=== PATIENT | female | born 1970 | race American Indian/Alaskan Native ===

== ENCOUNTER 2020-11-20 10:58 | Emergency (ER) | payer MEDICARE ==
--- NOTE | 2020-11-20 11:46 | XRay Report ---
CHEST 2 VIEWS INDICATION: cough. COMPARISON: 10/15/2020 FINDINGS: Support devices: None. Heart: Within normal limits. Lungs/pleura: No acute air space or interstitial disease. No pneumothorax. Additional findings: None. IMPRESSION: No acute findings. Signer Name: Luc Sharp Jr, MD Signed: 11/20/2020 11:41 AM Workstation Name: [id number]
--- NOTE | 2020-11-20 12:36 | Event Note ---
ED Screening Note Date of service: 11/20/20 Time: 12:35 ED Screening Note: Patient complains of cough and shortness of breath History of HIV-states currently on antiretrovirals, however her viral load is very high per patient Admitted to the hospital for an overdose 10/17/2020 History of asthma Patient is a current smoker + Orthopnea This initial assessment/diagnostic orders/clinical plan/treatment(s) is/are subject to change based on patients health status, clinical progression and re-assessment by fellow clinical providers in the ED. Further treatment and workup at subsequent clinical providers discretion. Patient/guardian urged not to elope from the ED as their condition may be serious if not clinically assessed and managed. Initial orders include: Chest x-ray EKG Labs
[2020-11-20] MEDS ORDERED: ONDANSETRON 4 MG/2 ML INJ IV ONE (13:23)
[2020-11-20] MEDS ORDERED: SODIUM CHLORIDE 0.9% 1000 ML 1,000 ML IV ONE (13:23)
[2020-11-20] MEDS ORDERED: KETOROLAC 30 MG/1 ML INJ IV ONE (13:23)
[2020-11-20 13:41] LABS: Basophils % (Auto) 0.6 % (0.0-1.8); Eosinophils % (Auto) 0.4 % (0.0-4.3); Hematocrit 37.9 % (30.3-42.9); Lymphocytes # (Auto) 1.4 K/mm3 (1.2-5.4); Lymphocytes % (Auto) 36.7 % (13.4-35.0); Mean Corpuscular HGB Conc 34 % (30-34); Mean Corpuscular Volume 95 fl (79-97); Monocytes # (Auto) 0.3 K/mm3 (0.0-0.8); Monocytes % (Auto) 7.9 % (0.0-7.3); Platelet Count 137 K/mm3 (140-440); Red Blood Count 4.02 M/mm3 (3.65-5.03); Red Cell Distribution Width 14.5 % (13.2-15.2)
[2020-11-20 13:58] LABS: Alanine Aminotransferase 14 units/L (7-56); Albumin 3.9 g/dL (3.9-5); Blood Urea Nitrogen 6 mg/dL (7-17); Calcium 9.2 mg/dL (8.4-10.2); Hemolysis Index 11
[2020-11-20 14:20] LABS: BUN/Creatinine Ratio 10
--- NOTE | 2020-11-20 14:53 | Emergency Department Report ---
- General Chief Complaint: Upper Respiratory Infection Stated Complaint: COUGH Time Seen by Provider: 11/20/20 13:22 Source: patient Mode of arrival: Ambulatory Limitations: No Limitations - History of Present Illness Initial Comments: Patient is a 50-year-old F [place] female with past medical history of HIV with a CD4 count 300 who is presenting with cough and congestion for the past 2 weeks. Patient had a COVID-19 test approximately a month ago which was negative. Patient is complaining of cough which is productive of clear to green sputum. Has some mild shortness of breath with exertion. Denies fevers and chills but does have some body aches. Patient has no known COVID-19 exposures. Because of the patient's HIV status and the chronic cough for the last 2 weeks she is concerned that she may have pneumonia. Patient has some mild nausea and diarrhea as well. - Related Data Home Medications Medication Instructions Recorded Confirmed Last Taken Acetaminophen 325 mg PO DAILY PRN 07/26/20 09/13/20 Unknown Naproxen 500 mg PO BID PRN 07/26/20 09/13/20 Unknown Thiamine HCl [Vitamin B-1] 100 mg PO DAILY 07/26/20 09/13/20 Unknown Previous Rx's Medication Instructions Recorded Last Taken Type Divalproex Sodium [Depakote 500 mg PO BID #60 07/27/20 Unknown Rx Sprinkle] ARIPiprazole 5 mg PO QDAY #30 09/14/20 Unknown Rx Acyclovir [Zovirax Tab] 800 mg PO Q12H #60 09/14/20 Unknown Rx Darunavir [Prezista] 800 mg PO QDAY #30 tablet 09/14/[address] [Depakote Dr] 500 mg PO BID #60 tablet 09/14/20 Unknown Rx Emtricitabine [Emtriva] 200 mg PO QDAY #30 capsule 09/14/20 Unknown Rx Escitalopram [Lexapro] 10 mg PO DAILY #30 09/14/20 Unknown Rx Folic Acid 1 mg PO DAILY #30 09/14/20 Unknown Rx LORazepam [Ativan] 1 mg PO TID PRN #60 tablet 09/14/20 Unknown Rx Losartan [Cozaar] 50 mg PO QDAY #30 tablet 09/14/20 Unknown Rx OLANZapine [Zyprexa] 10 mg PO DAILY #30 09/14/20 Unknown Rx Ritonavir 100 mg PO QDAY #30 tab 09/14/20 Unknown Rx Sertraline [Zoloft] 50 mg PO QDAY #30 09/14/20 Unknown Rx Sertraline [Zoloft] 50 mg PO QDAY #30 tablet 09/14/20 Unknown Rx Tenofovir [Viread] 300 mg PO QDAY #30 tablet 09/14/20 Unknown Rx Thiamine [Vitamin B-1] 100 mg PO QDAY #30 tablet 09/14/20 Unknown Rx buPROPion [Wellbutrin] 150 mg PO TID #30 09/14/20 Unknown Rx busPIRone [Buspar] 15 mg PO BID #60 09/14/20 Unknown Rx hydrALAZINE [Apresoline TAB] 25 mg PO Q8HR #90 tablet 09/14/20 Unknown Rx hydroCHLOROthiazide [HCTZ] 25 mg PO QDAY #30 tablet 09/14/20 Unknown Rx methOCARBAMOL [Robaxin TAB] 500 mg PO BID PRN #60 09/14/20 Unknown Rx traZODone [Desyrel] 100 mg PO QHS PRN #30 09/14/20 Unknown Rx Metoprolol [Lopressor TAB] 25 mg PO BID #60 tablet 10/19/20 Unknown Rx Thiamine [Vitamin B-1] 100 mg PO QDAY #30 tablet 10/19/20 Unknown Rx Albuterol Mdi (or & Nicu Only) 2 puff IH QID PRN #1 inhalation 11/20/20 Unknown Rx [ProAir HFA Inhaler] Albuterol Mdi (or & Nicu Only) 2 puff IH QID PRN #1 inhalation 11/20/20 Unknown Rx [ProAir HFA Inhaler] Benzonatate [Tessalon Perles] 100 mg PO Q8HR #10 capsule 11/20/20 Unknown Rx Dicyclomine [Bentyl] 20 mg PO QID #10 tablet 11/20/20 Unknown Rx Fluticasone [Flonase] 1 spray NS QDAY #1 bottle 11/20/20 Unknown Rx HYDROcodone/ACETAMINOPHEN 10 ml PO Q6H PRN #150 solution 11/20/20 Unknown Rx [Hydrocodon-Acetamin 7.5-325/15] Ondansetron [Zofran Odt] 4 mg PO Q8HR #10 tab.rapdis 11/20/20 Unknown Rx Ondansetron [Zofran Odt] 4 mg PO Q8HR #10 tab.rapdis 11/20/20 Unknown Rx predniSONE [Deltasone] 20 mg PO QDAY #5 tab 11/20/20 Unknown Rx predniSONE [Deltasone] 20 mg PO QDAY #5 tab 11/20/20 Unknown Rx Allergies Allergy/AdvReac Type Severity Reaction Status Date / Time Sulfa (Sulfonamide Allergy Unknown Unknown Verified 11/20/20 10:59 Antibiotics) Fish Containing Products Allergy Unknown Verified 11/20/20 10:59 ED Review of Systems ROS: Stated complaint: COUGH Other details as noted in HPI Comment: All other systems reviewed and negative ED Past Medical Hx - Past Medical History Hx Hypertension: Yes Hx Heart Attack/AMI: No Hx Congestive Heart Failure: No Hx Diabetes: No Hx Arthritis: No Hx Seizures: No Hx Asthma: Yes Hx COPD: No Hx Tuberculosis: No Hx Dementia: No Hx HIV: Yes Additional medical history: Bipolar and schizophrenia - Surgical History Hx Coronary Stent: No Hx Open Heart Surgery: No Hx Internal Defibrillator: No Hx Cholecystectomy: No Hx Appendectomy: Yes Hx Breast Surgery: No Additional Surgical History: appendectomy - Social History Smoking Status: Current Every Day Smoker Substance Use Type: None - Medications Home Medications: Home Medications Medication Instructions Recorded Confirmed Last Taken Type Acetaminophen 325 mg PO DAILY PRN 07/26/20 09/13/20 Unknown History Naproxen 500 mg PO BID PRN 07/26/20 09/13/20 Unknown History Thiamine HCl [Vitamin B-1] 100 mg PO DAILY 07/26/20 09/13/20 Unknown History Divalproex Sodium [Depakote 500 mg PO BID #60 07/27/20 09/13/20 Unknown Rx Sprinkle] ARIPiprazole 5 mg PO QDAY #30 09/14/20 Unknown Rx Acyclovir [Zovirax Tab] 800 mg PO Q12H #60 09/14/20 Unknown Rx Darunavir [Prezista] 800 mg PO QDAY #30 tablet 09/14/[address] [Depakote Dr] 500 mg PO BID #60 tablet 09/14/20 Unknown Rx Emtricitabine [Emtriva] 200 mg PO QDAY #30 capsule 09/14/20 Unknown Rx Escitalopram [Lexapro] 10 mg PO DAILY #30 09/14/20 Unknown Rx Folic Acid 1 mg PO DAILY #30 09/14/20 Unknown Rx LORazepam [Ativan] 1 mg PO TID PRN #60 tablet 09/14/20 Unknown Rx Losartan [Cozaar] 50 mg PO QDAY #30 tablet 09/14/20 Unknown Rx OLANZapine [Zyprexa] 10 mg PO DAILY #30 09/14/20 Unknown Rx Ritonavir 100 mg PO QDAY #30 tab 09/14/20 Unknown Rx Sertraline [Zoloft] 50 mg PO QDAY #30 09/14/20 Unknown Rx Sertraline [Zoloft] 50 mg PO QDAY #30 tablet 09/14/20 Unknown Rx Tenofovir [Viread] 300 mg PO QDAY #30 tablet 09/14/20 Unknown Rx Thiamine [Vitamin B-1] 100 mg PO QDAY #30 tablet 09/14/20 Unknown Rx buPROPion [Wellbutrin] 150 mg PO TID #30 09/14/20 Unknown Rx busPIRone [Buspar] 15 mg PO BID #60 09/14/20 Unknown Rx hydrALAZINE [Apresoline TAB] 25 mg PO Q8HR #90 tablet 09/14/20 Unknown Rx hydroCHLOROthiazide [HCTZ] 25 mg PO QDAY #30 tablet 09/14/20 Unknown Rx methOCARBAMOL [Robaxin TAB] 500 mg PO BID PRN #60 09/14/20 Unknown Rx traZODone [Desyrel] 100 mg PO QHS PRN #30 09/14/20 Unknown Rx Metoprolol [Lopressor TAB] 25 mg PO BID #60 tablet 10/19/20 Unknown Rx Thiamine [Vitamin B-1] 100 mg PO QDAY #30 tablet 10/19/20 Unknown Rx Albuterol Mdi (or & Nicu Only) 2 puff IH QID PRN #1 inhalation 11/20/20 Unknown Rx [ProAir HFA Inhaler] Albuterol Mdi (or & Nicu Only) 2 puff IH QID PRN #1 inhalation 11/20/20 Unknown Rx [ProAir HFA Inhaler] Benzonatate [Tessalon Perles] 100 mg PO Q8HR #10 capsule 11/20/20 Unknown Rx Dicyclomine [Bentyl] 20 mg PO QID #10 tablet 11/20/20 Unknown Rx Fluticasone [Flonase] 1 spray NS QDAY #1 bottle 11/20/20 Unknown Rx HYDROcodone/ACETAMINOPHEN 10 ml PO Q6H PRN #150 solution 11/20/20 Unknown Rx [Hydrocodon-Acetamin 7.5-325/15] Ondansetron [Zofran Odt] 4 mg PO Q8HR #10 tab.rapdis 11/20/20 Unknown Rx Ondansetron [Zofran Odt] 4 mg PO Q8HR #10 tab.rapdis 11/20/20 Unknown Rx predniSONE [Deltasone] 20 mg PO QDAY #5 tab 11/20/20 Unknown Rx predniSONE [Deltasone] 20 mg PO QDAY #5 tab 11/20/20 Unknown Rx ED Physical Exam - General Limitations: No Limitations General appearance: alert, in no apparent distress - Head Head exam: Present: atraumatic, normocephalic - Eye Eye exam: Present: normal appearance, PERRL - ENT ENT exam: Present: mucous membranes moist - Neck Neck exam: Present: normal inspection - Respiratory Respiratory exam: Present: normal lung sounds bilaterally. Absent: respiratory distress, wheezes, rales, rhonchi - Cardiovascular Cardiovascular Exam: Present: regular rate, normal rhythm, normal heart sounds. Absent: systolic murmur, diastolic murmur, rubs, gallop - GI/Abdominal GI/Abdominal exam: Present: soft, normal bowel sounds. Absent: distended, guarding, rebound - Extremities Exam Extremities exam: Present: normal inspection - Back Exam Back exam: Present: normal inspection - Neurological Exam Neurological exam: Present: alert, oriented X3 - Psychiatric Psychiatric exam: Present: normal affect, normal mood - Skin Skin exam: Present: warm, dry, intact, normal color. Absent: rash ED Course Vital Signs 11/20/20 10:59 Temperature 98.4 F Pulse Rate 82 Respiratory 20 Rate Blood Pressure 138/106 O2 Sat by Pulse 100 Oximetry ED Medical Decision Making - Lab Data Result diagrams: 11/20/20 12:53 11/20/20 12:53 Lab Results 11/20/20 11/20/20 Range/Units 12:53 12:53 WBC 3.9 L (4.5-11.0) K/mm3 RBC 4.02 (3.65-5.03) M/mm3 Hgb 13.0 (10.1-14.3) gm/dl Hct 37.9 (30.3-42.9) % MCV 95 (79-97) fl MCH 32 (28-32) pg MCHC 34 (30-34) % RDW 14.5 (13.2-15.2) % Plt Count 137 L (140-440) K/mm3 Lymph % (Auto) 36.7 H (13.4-35.0) % [place] % (Auto) 7.9 H (0.0-7.3) % Eos % (Auto) 0.4 (0.0-4.3) % Baso % (Auto) 0.6 (0.0-1.8) % Lymph # (Auto) 1.4 (1.2-5.4) K/mm3 [place] # (Auto) 0.3 (0.0-0.8) K/mm3 Eos # (Auto) 0.0 (0.0-0.4) K/mm3 Baso # (Auto) 0.0 (0.0-0.1) K/mm3 Seg Neutrophils % 54.4 (40.0-70.0) % Seg Neutrophils # 2.1 (1.8-7.7) K/mm3 Sodium 139 (137-145) mmol/L Potassium 3.6 (3.6-5.0) mmol/L Chloride 105.6 (98-107) mmol/L Carbon Dioxide 23 (22-30) mmol/L Anion Gap 14 mmol/L BUN 6 L (7-17) mg/dL Creatinine 0.6 (0.6-1.2) mg/dL Estimated GFR > 60 ml/min BUN/Creatinine Ratio 10 % Glucose 114 H (65-100) mg/dL Calcium 9.2 (8.4-10.2) mg/dL Total Bilirubin 0.30 (0.1-1.2) mg/dL AST 37 (5-40) units/L ALT 14 (7-56) units/L Alkaline Phosphatase 72 (35-129) units/L Troponin T < 0.010 (0.00-0.029) ng/mL NT-Pro-B Natriuret Pep 203.4 (0-900) pg/mL Total Protein 8.6 H (6.3-8.2) g/dL Albumin 3.9 (3.9-5) g/dL Albumin/Globulin Ratio 0.8 % - Radiology Data CXR WNL - Medical Decision Making Thankfully the patient is chest x-ray is within normal limits. Patient has O2 sat of 100% on room air. Patient stable for outpatient therapy. Patient be discharged home with medication for symptomatic relief. Critical care attestation.: If time is entered above; I have spent that time in minutes in the direct care of this critically ill patient, excluding procedure time. ED Disposition Clinical Impression: Acute bronchitis, Suspected COVID-19 virus infection Disposition: DC TO HOME OR SELFCARE Is pt being admited?: No Does the pt Need Aspirin: No Condition: Stable Instructions: Acute Bronchitis (ED), Acute Bronchitis, Adult, [id number], COVID-19 Frequently Asked Questions, COVID-19 Referrals: [facility] [Other] - 3-5 Days Time of Disposition: 14:54
[2020-11-20 15:39] VITALS: BP 136/89
== END 2020-11-20 15:43 | disposition home or self-care (01) ==
LOC: ED 10:58
DX: J20.9 Acute bronchitis, unspecified (principal); Z20.822 Contact with and (suspected) exposure to COVID-19; I10 Essential (primary) hypertension; J45.909 Unspecified asthma, uncomplicated; F17.200 Nicotine dependence, unspecified, uncomplicated; Z21 Asymptomatic human immunodeficiency virus [HIV] infection status; Z98.890 Other specified postprocedural states; Z79.899 Other long term (current) drug therapy
CPT/HCPCS: 36415; 71046; 80053; 83880; 84484; 85025; 96374; 96375; 99284; J1885; J2405; J7030

== ENCOUNTER 2021-04-03 07:17 | Emergency (ER) | payer MEDICARE ==
[2021-04-03] MEDS ORDERED: ASPIRIN 325 MG TAB PO ONE (07:35)
--- NOTE | 2021-04-03 08:16 | XRay Report ---
CHEST 2 VIEWS INDICATION / CLINICAL INFORMATION: Chest pain. COMPARISON: 11/20/20 FINDINGS: SUPPORT DEVICES: None. HEART / MEDIASTINUM: No significant abnormality. LUNGS / PLEURA: No significant pulmonary or pleural abnormality. No pneumothorax. ADDITIONAL FINDINGS: No significant additional findings. IMPRESSION: 1. No acute findings. No change. Signer Name: Carmine Fernandez MD Signed: 04/03/2021 8:12 AM Workstation Name: [id number]
[2021-04-03 08:53] LABS: Basophils % (Auto) 0.6 % (0.0-1.8); Eosinophils % (Auto) 0.4 % (0.0-4.3); Hematocrit 39.5 % (30.3-42.9); Hemoglobin 13.6 gm/dl (10.1-14.3); Lymphocytes # (Auto) 1.1 K/mm3 (1.2-5.4); Lymphocytes % (Auto) 37.7 % (13.4-35.0); Mean Corpuscular HGB Conc 35 % (30-34); Mean Corpuscular Volume 97 fl (79-97); Monocytes # (Auto) 0.3 K/mm3 (0.0-0.8); Monocytes % (Auto) 10.2 % (0.0-7.3); Platelet Count 139 K/mm3 (140-440); Red Blood Count 4.08 M/mm3 (3.65-5.03); Red Cell Distribution Width 14.7 % (13.2-15.2)
[2021-04-03 09:16] LABS: Alanine Aminotransferase 32 units/L (7-56); Albumin 4.3 g/dL (3.9-5); Blood Urea Nitrogen 7 mg/dL (7-17); Calcium 9.9 mg/dL (8.4-10.2); Hemolysis Index 16
[2021-04-03 09:21] LABS: BUN/Creatinine Ratio 14
--- NOTE | 2021-04-03 17:59 | Event Note ---
ED Screening Note Date of service: 04/03/21 Time: 17:57 ED Screening Note: 51-year-old female patient with history of HIV and tobacco use presents to the emergency department with complaints of odynophagia and unintentional weight loss. Patient states she has lost approximately 20 pounds in the last 3 weeks. She has been unable to keep down her antiretroviral medications. Patient was evaluated by her infectious disease specialist yesterday, at which time her viral load was found to be >2000. Patient states she experiences pain in her chest and throat with eating and drinking followed immediately by nausea and vomiting. Patient has her medical records from yesterday's office visit. Patient has not yet undergone endoscopy. General: Awake, appropriately interactive, no acute distress. Neck: Supple. Full range of motion intact. Cardiovascular: Normal peripheral perfusion. Pulmonary: No respiratory distress. Patient is speaking normally without use of accessory muscles. Skin: No apparent rashes or lesions. Neurological: No facial asymmetry. Speech is clear. Follows commands. Patient is alert and oriented. Musculoskeletal: Moves all four extremities spontaneously with normal range of motion. Psych: Cooperative. Appropriate mood and affect. I have greeted and performed a focused rapid initial assessment of this patient. A comprehensive ED assessment and evaluation of the patient, analysis of all test results, and completion of the medical decision-making process will be conducted by additional ED providers. This initial assessment/diagnostic orders/clinical plan/treatment(s) is/are subject to change based on patients health status, clinical progression and re-assessment. Further treatment and workup at subsequent clinical provider's discretion. Patient/guardian urged not to elope from the ED as their condition may be serious if not clinically assessed and managed.
--- NOTE | 2021-04-03 23:05 | Emergency Department Report ---
ED General Adult HPI - General Chief complaint: Chest Pain Stated complaint: CHEST PAIN Time Seen by Provider: 04/03/21 22:33 Source: patient Mode of arrival: Wheelchair Limitations: No Limitations - History of Present Illness Initial comments: 51-year-old female, history of HIV, presents to ED with complaint of dysphagia and odynophagia x3 weeks. Patient was sent to the ED by her infectious disease physician, Dr Lo, after seeing him yesterday and informing patient to come to the ER for an endoscopy. States over the last 3 weeks she has lost cooper roximately 20 pounds. She has painful swallowing and is unable to keep any food or liquids down. No previous history of this. Patient's HIV viral load is 2000. -: week(s) (3) Location: chest Radiation: non-radiation Quality: burning, aching Consistency: constant Improves with: none Worsens with: eating, other (Swallowing) Associated Symptoms: chest pain, nausea/vomiting. denies: fever/chills, shortness of breath Treatments Prior to Arrival: none - Related Data Home Medications Medication Instructions Recorded Confirmed Last Taken Acetaminophen 325 mg PO DAILY PRN 07/26/20 09/13/20 Unknown Naproxen 500 mg PO BID PRN 07/26/20 09/13/20 Unknown Thiamine HCl [Vitamin B-1] 100 mg PO DAILY 07/26/20 09/13/20 Unknown Previous Rx's Medication Instructions Recorded Last Taken Type Divalproex Sodium [Depakote 500 mg PO BID #60 07/27/20 Unknown Rx Sprinkle] ARIPiprazole 5 mg PO QDAY #30 09/14/20 Unknown Rx Acyclovir [Zovirax Tab] 800 mg PO Q12H #60 09/14/20 Unknown Rx Darunavir [Prezista] 800 mg PO QDAY #30 tablet 09/14/[address] [Depakote Dr] 500 mg PO BID #60 tablet 09/14/20 Unknown Rx Emtricitabine [Emtriva] 200 mg PO QDAY #30 capsule 09/14/20 Unknown Rx Escitalopram [Lexapro] 10 mg PO DAILY #30 09/14/20 Unknown Rx Folic Acid 1 mg PO DAILY #30 09/14/20 Unknown Rx LORazepam [Ativan] 1 mg PO TID PRN #60 tablet 09/14/20 Unknown Rx Losartan [Cozaar] 50 mg PO QDAY #30 tablet 09/14/20 Unknown Rx OLANZapine [Zyprexa] 10 mg PO DAILY #30 09/14/20 Unknown Rx Ritonavir 100 mg PO QDAY #30 tab 09/14/20 Unknown Rx Sertraline [Zoloft] 50 mg PO QDAY #30 09/14/20 Unknown Rx Sertraline [Zoloft] 50 mg PO QDAY #30 tablet 09/14/20 Unknown Rx Tenofovir [Viread] 300 mg PO QDAY #30 tablet 09/14/20 Unknown Rx Thiamine [Vitamin B-1] 100 mg PO QDAY #30 tablet 09/14/20 Unknown Rx buPROPion [Wellbutrin] 150 mg PO TID #30 09/14/20 Unknown Rx busPIRone [Buspar] 15 mg PO BID #60 09/14/20 Unknown Rx hydrALAZINE [Apresoline TAB] 25 mg PO Q8HR #90 tablet 09/14/20 Unknown Rx hydroCHLOROthiazide [HCTZ] 25 mg PO QDAY #30 tablet 09/14/20 Unknown Rx methOCARBAMOL [Robaxin TAB] 500 mg PO BID PRN #60 09/14/20 Unknown Rx traZODone [Desyrel] 100 mg PO QHS PRN #30 09/14/20 Unknown Rx Metoprolol [Lopressor TAB] 25 mg PO BID #60 tablet 10/19/20 Unknown Rx Thiamine [Vitamin B-1] 100 mg PO QDAY #30 tablet 10/19/20 Unknown Rx Albuterol Mdi (or & Nicu Only) 2 puff IH QID PRN #1 inhalation 11/20/20 Unknown Rx [ProAir HFA Inhaler] Albuterol Mdi (or & Nicu Only) 2 puff IH QID PRN #1 inhalation 11/20/20 Unknown Rx [ProAir HFA Inhaler] Benzonatate [Tessalon Perles] 100 mg PO Q8HR #10 capsule 11/20/20 Unknown Rx Dicyclomine [Bentyl] 20 mg PO QID #10 tablet 11/20/20 Unknown Rx Fluticasone [Flonase] 1 spray NS QDAY #1 bottle 11/20/20 Unknown Rx HYDROcodone/ACETAMINOPHEN 10 ml PO Q6H PRN #150 solution 11/20/20 Unknown Rx [Hydrocodon-Acetamin 7.5-325/15] Ondansetron [Zofran Odt] 4 mg PO Q8HR #10 tab.rapdis 11/20/20 Unknown Rx Ondansetron [Zofran Odt] 4 mg PO Q8HR #10 tab.rapdis 11/20/20 Unknown Rx predniSONE [Deltasone] 20 mg PO QDAY #5 tab 11/20/20 Unknown Rx predniSONE [Deltasone] 20 mg PO QDAY #5 tab 11/20/20 Unknown Rx Allergies Allergy/AdvReac Type Severity Reaction Status Date / Time Sulfa (Sulfonamide Allergy Unknown Unknown Verified 04/03/21 07:30 Antibiotics) Fish Containing Products Allergy Unknown Verified 04/03/21 07:30 ED Review of Systems ROS: Stated complaint: CHEST PAIN Other details as noted in HPI Comment: All other systems reviewed and negative Constitutional: denies: fever Cardiovascular: chest pain Gastrointestinal: nausea, vomiting, other (Reports dysphagia and odynophagia) ED Past Medical Hx - Past Medical History Hx Hypertension: Yes Hx Heart Attack/AMI: No Hx Congestive Heart Failure: No Hx Diabetes: No Hx Arthritis: No Hx Seizures: No Hx Asthma: Yes Hx COPD: No Hx Tuberculosis: No Hx Dementia: No Hx HIV: Yes Additional medical history: Bipolar and schizophrenia - Surgical History Hx Coronary Stent: No Hx Open Heart Surgery: No Hx Internal Defibrillator: No Hx Cholecystectomy: No Hx Appendectomy: Yes Hx Breast Surgery: No Additional Surgical History: appendectomy - Social History Smoking Status: Current Every Day Smoker Substance Use Type: None - Medications Home Medications: Home Medications Medication Instructions Recorded Confirmed Last Taken Type Acetaminophen 325 mg PO DAILY PRN 07/26/20 09/13/20 Unknown History Naproxen 500 mg PO BID PRN 07/26/20 09/13/20 Unknown History Thiamine HCl [Vitamin B-1] 100 mg PO DAILY 07/26/20 09/13/20 Unknown History Divalproex Sodium [Depakote 500 mg PO BID #60 07/27/20 09/13/20 Unknown Rx Sprinkle] ARIPiprazole 5 mg PO QDAY #30 09/14/20 Unknown Rx Acyclovir [Zovirax Tab] 800 mg PO Q12H #60 09/14/20 Unknown Rx Darunavir [Prezista] 800 mg PO QDAY #30 tablet 09/14/[address] [Sylvia Dr] 500 mg PO BID #60 tablet 09/14/20 Unknown Rx Emtricitabine [Emtriva] 200 mg PO QDAY #30 capsule 09/14/20 Unknown Rx Escitalopram [Lexapro] 10 mg PO DAILY #30 09/14/20 Unknown Rx Folic Acid 1 mg PO DAILY #30 09/14/20 Unknown Rx LORazepam [Ativan] 1 mg PO TID PRN #60 tablet 09/14/20 Unknown Rx Losartan [Cozaar] 50 mg PO QDAY #30 tablet 09/14/20 Unknown Rx OLANZapine [Zyprexa] 10 mg PO DAILY #30 09/14/20 Unknown Rx Ritonavir 100 mg PO QDAY #30 tab 09/14/20 Unknown Rx Sertraline [Zoloft] 50 mg PO QDAY #30 09/14/20 Unknown Rx Sertraline [Zoloft] 50 mg PO QDAY #30 tablet 09/14/20 Unknown Rx Tenofovir [Viread] 300 mg PO QDAY #30 tablet 09/14/20 Unknown Rx Thiamine [Vitamin B-1] 100 mg PO QDAY #30 tablet 09/14/20 Unknown Rx buPROPion [Wellbutrin] 150 mg PO TID #30 09/14/20 Unknown Rx busPIRone [Buspar] 15 mg PO BID #60 09/14/20 Unknown Rx hydrALAZINE [Apresoline TAB] 25 mg PO Q8HR #90 tablet 09/14/20 Unknown Rx hydroCHLOROthiazide [HCTZ] 25 mg PO QDAY #30 tablet 09/14/20 Unknown Rx methOCARBAMOL [Robaxin TAB] 500 mg PO BID PRN #60 09/14/20 Unknown Rx traZODone [Desyrel] 100 mg PO QHS PRN #30 09/14/20 Unknown Rx Metoprolol [Lopressor TAB] 25 mg PO BID #60 tablet 10/19/20 Unknown Rx Thiamine [Vitamin B-1] 100 mg PO QDAY #30 tablet 10/19/20 Unknown Rx Albuterol Mdi (or & Nicu Only) 2 puff IH QID PRN #1 inhalation 11/20/20 Unknown Rx [ProAir HFA Inhaler] Albuterol Mdi (or & Nicu Only) 2 puff IH QID PRN #1 inhalation 11/20/20 Unknown Rx [ProAir HFA Inhaler] Benzonatate [Tessalon Perles] 100 mg PO Q8HR #10 capsule 11/20/20 Unknown Rx Dicyclomine [Bentyl] 20 mg PO QID #10 tablet 11/20/20 Unknown Rx Fluticasone [Flonase] 1 spray NS QDAY #1 bottle 11/20/20 Unknown Rx HYDROcodone/ACETAMINOPHEN 10 ml PO Q6H PRN #150 solution 11/20/20 Unknown Rx [Hydrocodon-Acetamin 7.5-325/15] Ondansetron [Zofran Odt] 4 mg PO Q8HR #10 tab.rapdis 11/20/20 Unknown Rx Ondansetron [Zofran Odt] 4 mg PO Q8HR #10 tab.rapdis 11/20/20 Unknown Rx predniSONE [Deltasone] 20 mg PO QDAY #5 tab 11/20/20 Unknown Rx predniSONE [Deltasone] 20 mg PO QDAY #5 tab 11/20/20 Unknown Rx ED Physical Exam - General Limitations: No Limitations General appearance: alert, in no apparent distress - Head Head exam: Present: atraumatic, normocephalic - Eye Eye exam: Present: normal appearance, EOMI - ENT ENT exam: Present: mucous membranes moist - Neck Neck exam: Present: normal inspection - Respiratory Respiratory exam: Present: normal lung sounds bilaterally. Absent: respiratory distress - Cardiovascular Cardiovascular Exam: Present: regular rate, normal rhythm - GI/Abdominal GI/Abdominal exam: Present: soft. Absent: distended, tenderness - Extremities Exam Extremities exam: Present: normal inspection - Neurological Exam Neurological exam: Present: alert, oriented X3 - Psychiatric Psychiatric exam: Present: normal affect, normal mood - Skin Skin exam: Present: warm, dry, intact, normal color ED Course Vital Signs 04/03/21 04/03/21 07:36 23:09 Temperature 98.7 F Pulse Rate 84 83 Respiratory 18 13 Rate Blood Pressure 148/103 Blood Pressure 116/87 [Left] O2 Sat by Pulse 98 100 Oximetry - Consultations Consultation #1: 04/03/21 23:[address] Elizabeth. Patient does not meet inpatient criteria. Patient should follow-up in office tomorrow. ED Medical Decision Making - Lab Data Result diagrams: 04/03/21 08:25 04/03/21 08:25 - EKG Data -: EKG Interpreted by Me EKG shows normal: sinus rhythm, axis, intervals, QRS complexes, ST-T waves Rate: normal - EKG Data Interpretation: no acute changes - Radiology Data Radiology results: report reviewed, image reviewed - Medical Decision Making 51-year-old female presents to ED with 2-week history of dysphagia and odynophagia. Signs are stable. Labs are unremarkable. I spoke with lift driver who advises patient to call the office tomorrow to arrange a follow-up visit. Patient is agreeable with this plan. Will discharge at this time, return precautions given. - Differential Diagnosis Esophageal web, esophageal stricture, pooja esophagitis Critical care attestation.: If time is entered above; I have spent that time in minutes in the direct care of this critically ill patient, excluding procedure time. ED Disposition Clinical Impression: Dysphagia Disposition: DC-01 TO HOME OR SELFCARE Is pt being admited?: No Condition: Stable Instructions: Dysphagia, Dysphagia Eating Plan, Pureed Referrals: [facility] [Provider Group] - 3-5 Days Time of Disposition: 23:09
[2021-04-03 23:10] VITALS: BP 116/87
--- NOTE | 2021-04-04 17:46 | Electrocardiograph Report ---
[facility] Test Date: 2021-04-03 Test Time: 07:44:31 Pat Name: ADAMARIS CHAUHAN Department: Room: Gender: F [employer]: JESS : 1970 Requested By: ED DOC Order Number: [id number] Reading MD: Hayden Cortez Measurements Intervals [place] Rate: 71 P: 46 SC: 157 QRS: -48 QRSD: 102 T: 44 QT: 417 QTc: 454 Interpretive Statements Sinus rhythm Probable left atrial enlargement Left anterior fascicular block No previous ECG available for comparison Electronically Signed On 04-04-2021 17:45:56 EDT by Hayden Cortez
== END 2021-04-03 23:33 | disposition home or self-care (01) ==
LOC: ED 07:17
DX: R13.10 Dysphagia, unspecified (principal); I10 Essential (primary) hypertension; J45.909 Unspecified asthma, uncomplicated; B20 Human immunodeficiency virus [HIV] disease; Z98.890 Other specified postprocedural states; Z88.2 Allergy status to sulfonamides; Z91.013 Allergy to seafood
CPT/HCPCS: 36415; 71046; 80053; 84484; 85025; 93005; 99284